=== PATIENT | female | born 1955 | race Caucasian/White ===

== ENCOUNTER 2019-09-13 10:08 | Observation (INO) ==
[2019-09-13] MEDS ORDERED: Aspirin 81 MG TAB.CHEW PO ONE (10:16)
[2019-09-13 10:27] LABS: Basophils # 0.1 K/mcL (0.0-0.2); Basophils % 0.4 %; Eosinophils # 0.2 K/mcL (0.0-0.6); Hematocrit 45.6 % (35.3-44.9); Hemoglobin 15.4 g/dL (11.5-15.4); Immature Granulocytes % 1.3 % (0-4); Lymphocytes # 4.2 K/mcL (0.6-4.6); Lymphocytes % 26.9 %; Mean Corpuscular HGB Conc 33.8 g/dL (31.6-35.5); Mean Corpuscular Hemoglobin 27.9 pg (28.0-33.3); Mean Corpuscular Volume 82.6 fL (83.0-100.0); Mean Platelet Volume 8.7 fL (9.4-12.4); Monocytes # 1.5 K/mcL (0.0-1.3); Monocytes % 9.3 %; Neutrophils # 9.6 K/mcL (1.6-8.9); Platelet Count 325 K/mcL (140-400); Red Blood Count 5.52 M/mcL (3.82-4.97); Red Cell Distribution Width 16.1 % (11.5-14.5); Segmented Neutrophils % 61.1 %; White Blood Count 15.7 K/mcL (4.3-11.1)
[2019-09-13 10:34] LABS: Prothrombin Time 11.6 Seconds (9.4-12.1)
[2019-09-13 10:50] LABS: BUN/Creatinine Ratio 25 (6-26); Blood Urea Nitrogen 18 mg/dL (8-23); Calcium 9.4 mg/dL (8.6-10.3); Carbon Dioxide 24 mEq/L (23-29); Chloride 104 mEq/L (98-107); Glucose 101 mg/dL (70-105); Osmolality,Calculated 286 (280-300); Potassium 3.9 mEq/L (3.5-5.1); Sodium 137 mEq/L (136-145); Troponin I < 0.03 ng/mL (< 0.04); eGFR For African Americans > 60 (> 60); eGFR For Non-African Americans > 60 (> 60)
[2019-09-13] MEDS ORDERED: MOM Conc 10 ML UD.LIQ PO PRN (12:02)
[2019-09-13] MEDS ORDERED: Naloxone 0.4 MG/ML INJ IVP PRN (12:02)
[2019-09-13] MEDS ORDERED: *HR* Promethazine 25 MG/ML VIAL IVP PRN (12:02)
[2019-09-13] MEDS ORDERED: Mag Hydrox/Al Hydrox/Simeth 30 ML UDC PO PRN (12:02)
[2019-09-13] MEDS ORDERED: traMADol 50 MG TABLET PO PRN (12:02)
[2019-09-13] MEDS ORDERED: Acetaminophen 325 MG TABLET PO PRN (12:02)
[2019-09-13] MEDS ORDERED: Ondansetron 4 MG/2 ML VIAL IVP PRN (12:02)
[2019-09-13] MEDS ORDERED: Dextrose Gel 15 GM/37.5 ML TUBE PO PRN ×2 (12:05)
[2019-09-13] MEDS ORDERED: *HR* Dextrose 50 % in Water (Syg) 50 ML SYRINGE IVP PRN (12:05)
[2019-09-13] MEDS ORDERED: D5% in Water 1,000 ML IVC PRN (12:05)
[2019-09-13] MEDS ORDERED: *HR* Heparin 10,000 UNIT/10 ML VIAL ONE (16:06)
[2019-09-13] MEDS ORDERED: 0.9 % Sodium Chloride 2,000 ML ONE (16:06)
[2019-09-13] MEDS ORDERED: Heparin 1,000 UNITS/500 mL 500 ML ONE (16:06)
[2019-09-13] MEDS ORDERED: ISOVUE-370 200 ML INFUS..BTL ONE (16:07)
[2019-09-13] MEDS ORDERED: Nitroglycerin 1,000 MCG/10 ML VIAL IV ONE (16:07)
[2019-09-13] MEDS: Famotidine 20 MG TABLET PO SCH (16:10)
[2019-09-13] MEDS: Insulin LISPRO 300 UNITS/3 ML VIAL SQ SCH (16:10)
[2019-09-13] MEDS ORDERED: *HR* Midazolam HCl 2 MG/2 ML VIAL ONE (16:39)
[2019-09-13] MEDS ORDERED: *HR* FentaNYL (PF) 100 MCG/2 ML VIAL ONE ×2 (16:40→17:26)
[2019-09-13] MEDS ORDERED: Tirofiban 12.5 MG/250ML 12.5 MG/250 ML BAG ONE (17:04)
[2019-09-13] MEDS ORDERED: *HR* Ticagrelor 90 MG TABLET ONE (17:25)
[2019-09-13] MEDS ORDERED: Tirofiban 12.5 MG/250ML 12.5 MG/250 ML BAG IVC SCH (17:30)
[2019-09-13] MEDS: *HR* Heparin 5,000 UNIT/ML VIAL SQ SCH (17:31)
[2019-09-13] MEDS: *HR* Ticagrelor 90 MG TABLET PO SCH (19:36)
[2019-09-13] MEDS: Budesonide/Formoterol 160/4.5 1 PUFF INH IH SCH (19:48)
[2019-09-13] MEDS ORDERED: Insulin LISPRO 300 UNITS/3 ML VIAL SQ SCH (21:00)
[2019-09-14 05:20] LABS: Basophils # 0.1 K/mcL (0.0-0.2); Basophils % 0.4 %; Eosinophils # 0.1 K/mcL (0.0-0.6); Immature Granulocytes % 1.5 % (0-4); Lymphocytes # 2.7 K/mcL (0.6-4.6); Lymphocytes % 22.8 %; Mean Corpuscular HGB Conc 32.9 g/dL (31.6-35.5); Mean Corpuscular Hemoglobin 27.9 pg (28.0-33.3); Mean Corpuscular Volume 84.7 fL (83.0-100.0); Mean Platelet Volume 8.7 fL (9.4-12.4); Monocytes # 1.1 K/mcL (0.0-1.3); Monocytes % 9.4 %; Neutrophils # 7.8 K/mcL (1.6-8.9); Platelet Count 273 K/mcL (140-400); Red Blood Count 4.84 M/mcL (3.82-4.97); Red Cell Distribution Width 16.2 % (11.5-14.5); Segmented Neutrophils % 64.9 %; White Blood Count 11.9 K/mcL (4.3-11.1)
[2019-09-14 05:23] LABS: Hemoglobin 13.5 g/dL (11.5-15.4)
[2019-09-14 05:31] LABS: BUN/Creatinine Ratio 32 (6-26); Blood Urea Nitrogen 22 mg/dL (8-23); Calcium 8.8 mg/dL (8.6-10.3); Carbon Dioxide 22 mEq/L (23-29); Chloride 104 mEq/L (98-107); Chol/HDL Ratio 4.3 (0-4.9); Cholesterol 190 mg/dL (< 200); Glucose 100 mg/dL (70-105); HDL Cholesterol 44 mg/dL (40-59); LDL Cholesterol,Calculated 86 mg/dL (0-99); Magnesium 2.4 mg/dL (1.6-2.6); Osmolality,Calculated 283 (280-300); Phosphorous 3.2 mg/dL (2.7-4.5); Potassium 4.1 mEq/L (3.5-5.1); Sodium 135 mEq/L (136-145); Triglycerides 299 mg/dL (< 150); eGFR For African Americans > 60 (> 60); eGFR For Non-African Americans > 60 (> 60)
[2019-09-14] MEDS: *HR* Heparin 5,000 UNIT/ML VIAL SQ SCH (05:37)
[2019-09-14 07:38] VITALS: BP 105/69
[2019-09-14] MEDS: Insulin LISPRO 300 UNITS/3 ML VIAL SQ SCH (07:42)
[2019-09-14] MEDS: *HR* Ticagrelor 90 MG TABLET PO SCH (07:58)
[2019-09-14] MEDS: Famotidine 20 MG TABLET PO SCH (07:58)
[2019-09-14] MEDS: Budesonide/Formoterol 160/4.5 1 PUFF INH IH SCH (08:23)
[2019-09-14] MEDS ORDERED: Cholecalciferol (D-3) 1,000 UNIT (25MCG) TABLET PO SCH (09:00)
[2019-09-14] MEDS ORDERED: Aspirin Enteric Coated 81 MG Tablet PO SCH (09:00)
[2019-09-14] MEDS ORDERED: Aspirin 81 MG TAB.CHEW PO SCH (09:00)
[2019-09-14] MEDS ORDERED: Adenosine 90 MG/30 ML MLS IV ONE (12:02)
== END 2019-09-14 12:03 | disposition home or self-care (01) ==
LOC: 3BNU 10:08 → EMEROOARM 10:08 → 3BNU 12:37
PROVIDERS: ADMIT Student in an Organized Health Care Education/Training Program; ATTEND Student in an Organized Health Care Education/Training Program

== ENCOUNTER 2020-03-19 19:31 | Observation (INO) ==
[2020-03-19] MEDS ORDERED: Aspirin 81 MG TAB.CHEW PO ONE (19:33)
[2020-03-19] MEDS ORDERED: Nitroglycerin 0.4 MG TAB.SUBL SL PRN (19:33)
[2020-03-19 20:00] LABS: Basophils # 0.1 K/mcL (0.0-0.2); Basophils % 0.3 %; Eosinophils # 0.1 K/mcL (0.0-0.6); Eosinophils % 0.5 %; Hematocrit 47.2 % (35.3-44.9); Hemoglobin 15.4 g/dL (11.5-15.4); INR 1.1; Immature Granulocytes % 0.9 % (0-4); Lymphocytes # 4.8 K/mcL (0.6-4.6); Lymphocytes % 27.9 %; Mean Corpuscular HGB Conc 32.6 g/dL (31.6-35.5); Mean Corpuscular Volume 79.6 fL (83.0-100.0); Mean Platelet Volume 8.8 fL (9.4-12.4); Monocytes # 1.5 K/mcL (0.0-1.3); Monocytes % 8.5 %; Neutrophils # 10.6 K/mcL (1.6-8.9); Platelet Count 366 K/mcL (140-400); Prothrombin Time 12.1 Seconds (9.4-12.1); Red Blood Count 5.93 M/mcL (3.82-4.97); Red Cell Distribution Width 17.9 % (11.5-14.5); Segmented Neutrophils % 61.9 %; White Blood Count 17.1 K/mcL (4.3-11.1)
[2020-03-19 20:20] LABS: BUN/Creatinine Ratio 19 (6-26); Blood Urea Nitrogen 19 mg/dL (8-23); Calcium 10.6 mg/dL (8.6-10.3); Carbon Dioxide 21 mEq/L (23-29); Chloride 102 mEq/L (98-107); Glucose 152 mg/dL (70-105); Osmolality,Calculated 285 (280-300); Sodium 135 mEq/L (136-145); Troponin I < 0.03 ng/mL (< 0.04); eGFR For African Americans > 60 (> 60); eGFR For Non-African Americans 55 (> 60)
[2020-03-19 22:22] VITALS: BP 130/70
[2020-03-19] MEDS ORDERED: Naloxone 0.4 MG/ML INJ IVP PRN (22:33)
[2020-03-19] MEDS ORDERED: Ondansetron 4 MG/2 ML VIAL IVP PRN (22:33)
[2020-03-19] MEDS ORDERED: *HR* Metoprolol 5 MG/5 ML VIAL IVP PRN (22:35)
[2020-03-20] MEDS ORDERED: Insulin LISPRO 300 UNITS/3 ML VIAL SQ SCH ×2 (08:00→21:00)
[2020-03-20] MEDS ORDERED: Aspirin Enteric Coated 81 MG Tablet PO SCH (09:00)
[2020-03-20] MEDS ORDERED: Budesonide/Formoterol 160/4.5 1 PUFF INH IH SCH (10:00)
== END 2020-03-20 00:05 | disposition left against medical advice (07) ==
LOC: EMEROOARM 19:31 → 3BNU 19:31
PROVIDERS: ADMIT Student in an Organized Health Care Education/Training Program; ATTEND Student in an Organized Health Care Education/Training Program